=== PATIENT | female | born 1990 | race Two or more races ===

== ENCOUNTER 2019-11-30 17:04 | Emergency (ER) | payer MEDICAID ==
[~2019-11-30] VITALS: Ht 157.5 cm; Wt 70.0 kg
[2019-11-30 17:09] VITALS: BP 110/68
--- NOTE | 2019-11-30 17:14 | NUR ---
PT BIB [facility] AFTER A SUDDEN ONSET RUQ PAIN. PT HAS HISTORY OF COLLICKY GALLBLADDER, WAS TOLD BY A SPECIALIST SHE NEEDED TO HAVE IT OUT, BUT STATES SHE WAS TOO SCARED TO FOLLOW UP. GIVEN 4MG ZOFRAN, 100MCG FENTANYL EN ROUTE. PT ATTACHED TO MONITORS, CHANGED INTO GOWN, AND PROVIDED WITH WARM BLANKETS. DENIES ANY OTHER NEEDS AT THIS TIME, CALL LIGHT IN REACH, SIGNIFICANT OTHER AT BEDSIDE.
[2019-11-30] MEDS ORDERED: PLEASE ENTER ALLERGIES MC SCH (18:00)
[2019-11-30] MEDS ORDERED: MORPHINE SULFATE 4 MG/ML, 1ML IVPush PRN (18:00)
[2019-11-30] MEDS ORDERED: ONDANSETRON 2MG/ML, 2ML IVPush ONE (18:00)
[2019-11-30] MEDS ORDERED: SODIUM CHLORIDE 0.9% 1,000ML IVBOLUS ONE (18:00)
[2019-11-30] MEDS ORDERED: SODIUM CHLORIDE FLUSH 10ML SYR IVF ONE (18:00)
[2019-11-30 18:12] LABS: BASOPHILS # (AUTO) 0.05 x10^3/uL (0-0.1); BASOPHILS % (AUTO) 0 % (0-1); EOSINOPHILS # (AUTO) 0.09 x10^3/uL (0-0.4); EOSINOPHILS % (AUTO) 1 % (1-7); LYMPHOCYTES # (AUTO) 1.54 x10^3/uL (1-3.4); LYMPHOCYTES % (AUTO) 11 % (22-44); MD NO; MEAN CORPUSCULAR HEMOGLOBIN 29.2 pg (27.0-34.8); MEAN CORPUSCULAR HGB CONC 33.1 g/dL (32.4-35.8); MEAN CORPUSCULAR VOLUME 88.3 fL (80-100); MEAN PLATELET VOLUME 9.1 fL (7.4-10.4); MONOCYTES # (AUTO) 0.61 x10^3/uL (0.2-0.8); MONOCYTES % (AUTO) 5 % (2-9); NEUTROPHILS # (AUTO) 11.35 x10^3/uL (1.8-6.8); NEUTROPHILS % (AUTO) 83 % (42-75); PLATELET COUNT 230 x10^3/uL (130-400); RED BLOOD COUNT 4.75 x10^6/uL (3.82-5.3); RED CELL DISTRIBUTION WIDTH 12.8 % (9.6-15.2)
[2019-11-30 18:23] LABS: ALANINE AMINOTRANSFERASE 45 U/L (12-78); ALBUMIN 3.9 g/dL (3.4-5.0); ANION GAP 6 mmol/L (5-15); CALCIUM 8.8 mg/dL (8.5-10.1); CHLORIDE 110 mmol/L (98-107); CREATININE 0.72 mg/dL (0.55-1.02)
[2019-11-30 18:26] LABS: ALKALINE PHOSPHATASE 111 U/L (45-117); BILIRUBIN,TOTAL 0.9 mg/dL (0.2-1.0); TOTAL PROTEIN 7.7 g/dL (6.4-8.2)
--- NOTE | 2019-11-30 18:57 | NUR ---
ULTRASOUND AT BEDSIDE. PT AWARE OF NEED FOR URINE SAMPLE, UNABLE TO COMPLETE UNTIL COMPLETION OF U/S. CUP AT BEDSIDE. CALL LIGHT IN REACH.
[2019-11-30 20:17] LABS: MICROSCOPIC NOT IND
[2019-11-30] MEDS ORDERED: OXYcodone/APAP 5/325MG TABLET PO ONE (20:30)
[2019-11-30] MEDS ORDERED: OXYcodone/APAP 5/325MG TABLET ONE (20:49)
== END 2019-11-30 20:59 | disposition home or self-care (01) ==
LOC: ED 20:48
DX: K80.20 Calculus of gallbladder without cholecystitis without obstruction (principal); G89.29 Other chronic pain; R10.11 Right upper quadrant pain; R11.2 Nausea with vomiting, unspecified
CPT/HCPCS: 36415; 76700; 80053; 81003; 83690; 84703; 85025; 96360; 96361; 99284; J7030